=== PATIENT | male | born 1975 | race Two or more races ===

== ENCOUNTER 2020-02-17 16:31 | Emergency (ER) | payer OTHER ==
--- NOTE | 2020-02-17 17:18 | EDM.PDOC ---
ED HPI GENERAL MEDICAL PROBLEM - General Chief Complaint: Respiratory Problem Stated Complaint: COVID SYMPTOMS/COUGH/CHILLS Time Seen by Provider: 02/17/20 16:46 Source of Information: Reports: Patient, RN Notes Reviewed History Limitations: Reports: No Limitations - History of Present Illness INITIAL COMMENTS - FREE TEXT/NARRATIVE: Patient is a 44-year-old male who presents to the ED for the evaluation of his [id number] symptoms. Patient notes that since Tuesday, he has had generalized body aches, weakness fatigue, dry cough and shortness of breath. He has not had a fever, and is not experiencing any nausea, vomiting or diarrhea or he has not lost his sense of taste or smell. The patient notes that he was at a green party 2 weeks ago with friends, and he states he was exposed to Covid at that time. Again he is only been experiencing these new symptoms since this week Tuesday. Patient has been using a humidifier at home, and used his 's albuterol inhaler, he states this helped a little bit with his shortness of breath but states he felt anxious after this. He has been utilizing Tylenol/ibuprofen/aspirin for body aches, this seems to help quite a bit. His primary care provider is Tomi Alejo. The patient is obese, on antihypertensive drugs, and is a diabetic. - Related Data Allergies Allergy/AdvReac Type Severity Reaction Status Date / Time No Known Allergies Allergy Verified 02/17/20 16:54 Home Meds: Home Meds Dapagliflozin/Metformin HCl [Xigduo Xr 5 mg-1,000 mg Tablet] 1 tab PO BID 02/17/20 [History] Rosuvastatin [Crestor] 10 mg PO DAILY 02/17/20 [History] Valsartan 80 mg PO DAILY 02/17/20 [History] Past Medical History Cardiovascular History: Reports: High Cholesterol, Hypertension Endocrine/Metabolic History: Reports: Diabetes, Type II, Obesity/BMI 30+ ED ROS GENERAL - Review of Systems Review Of Systems: Comprehensive ROS is negative, except as noted in HPI. ED EXAM, GENERAL - Physical Exam Exam: See Below Exam Limited By: No Limitations General Appearance: Alert, WD/WN, No Apparent Distress Respiratory/Chest: No Respiratory Distress, Lungs Clear, Normal Breath Sounds, No Accessory Muscle Use, Chest Non-Tender Cardiovascular: Normal Peripheral Pulses, Regular Rate, Rhythm, No Edema, No Murmur Peripheral Pulses: 2+: Radial (L), Radial (R) Extremities: Normal Inspection, Normal Capillary Refill Neurological: Alert, Oriented, Normal Cognition, No Motor/Sensory Deficits Psychiatric: Normal Affect, Normal Mood Skin Exam: Warm, Dry, Intact, Normal Color, No Rash Course - Vital Signs Last Recorded V/S: Last Vital Signs Temp 97.3 F 02/17/20 16:48 Pulse 102 H 02/17/20 16:48 Resp 20 02/17/20 16:48 BP 146/93 H 02/17/20 16:48 Pulse Ox 94 L 02/17/20 16:48 - Orders/Labs/Meds Orders: Active Orders 24 hr Category Date Time Status Chest 1V Frontal [CR] Stat Exams 02/17/20 17:16 Ordered CORONAVIRUS COVID-19 PCR [facility] Stat Lab 02/17/20 17:15 Ordered Isolation [COMM] Routine Oth 02/17/20 17:15 Ordered - Re-Assessments/Exams Free Text/Narrative Re-Assessment/Exam: 02/17/20 17:18 Patient presents to the ED for evaluation of his [id number] symptoms. O2 sats at time of triage have been 94 to 95% on room air, he is not visibly dyspneic, his pulse is mildly elevated at 102, but he states he did use his 's albuterol inhaler prior to coming to the ER. He is afebrile temperature is 97.3 F, respiratory rate of 20 breaths/min and blood pressure is normal 146/93. At this time he does look stable enough that we will do the doctors hospital Covid swab and obtain a flu swab for rule out of influenza and get a chest x-ray for baseline purposes. The patient would qualify for bamlanivimab treatment; and this should be offered to the patient when we get his state COVID test back. 02/17/20 17:50 The patient's chest x-ray is done, and does demonstrate multilobar pneumonia concerning for possible viral etiology. There are patchy peripheral groundglass opacities noted. This is consistent with a clinical diagnosis of COVID-19. As stated above we will await his outpatient test to return, and then he would likely benefit from the bamlanivimab treatment. 02/17/20 18:21 Since influenza screen was negative. Patient's O2 sats are still good on room air, roughly 94 to 95%. I did go over this with him and told him he likely had COVID-19 even without the swab at today's visit. He verbalized understanding. Departure - Departure Time of Disposition: 18:23 Disposition: Home, Self-Care 01 Condition: Good Clinical Impression: Suspected COVID-19 virus infection - Discharge Information *PRESCRIPTION DRUG MONITORING PROGRAM REVIEWED*: No *COPY OF PRESCRIPTION DRUG MONITORING REPORT IN PATIENT HUGO: No Instructions: Shortness of Breath, Adult, [id number] Referrals: Jalil Lund MD [Primary Care Provider] - Forms: ED Department Discharge, ED Return to Work/School Form Additional Instructions: You were seen in the ER today for ongoing and/or worsening respiratory symptoms. Your chest x-ray showed signs of a viral pneumonia. Your oxygen levels were good at 94-95% on room air. The chest x-ray findings are very typical for a COVID-19 infection. It is very highly likely that you do in fact have COVID-19 and unfortunately this disease will make you feel very short of breath; as this is the nature of the disease. Your influenza swab was negative at today's visit. At this time we did test you for COVID-19. We ask that you self-quarantine and limit your exposure to others until you receive your results from the state. You have been given a work note to reflect this. Swabs are sent from this facility on a daily basis, at 2:30 PM, you should expect up to 3-5 business days for positive or negative results. However you may receive results earlier than this. We are doing our best to call as soon as we get results from the [place] dept. of [facility]. If you do get a call with positive results, please ask them about the outpatient antibody treatment, that may be of benefit to you. Please try to increase your oral fluid intake, and eat multiple small meals throughout the day, to keep yourself healthy. You need to keep yourself nourished in order to fight off this disease. You can try a liquid diet like gatorade/powerade as well to get your electrolytes. You may take 500 mg Tylenol every hours 6 hours for pain/fever relief. Do not exceed 4000 mg Tylenol in a 24-hour time span. You may continue to use your OTC medications at home as you previously were. Recommend you obtain a pulse oximeter and monitor your oxygen levels at home, you should place the monitor on your finger, and sit in a calm, quiet position for a few minutes and then record the number that is on the screen. If this consistently below 90% on room air without movement, this would be cause for concern to come back to the hospital for further management. You can obtain one of these at [facility], usually any pharmacy, or [facility] across the street from the [facility]. You were given a prescription for dexamethasone, dosing will be 1 tablet daily for the next 4 or 5 days. Your first dose was given in the ER today. This will cause some elevation in your blood sugars; so please be aware of this. Sepsis Event Note (ED) - Evaluation Sepsis Screening Result: No Definite Risk - Focused Exam Vital Signs: Vital Signs Temp Pulse Resp BP Pulse Ox 02/17/20 16:48 97.3 F 102 H 20 146/93 H 94 L - My Orders Last 24 Hours: My Active Orders 02/17/20 17:15 CORONAVIRUS COVID-19 PCR [facility] Stat Isolation [COMM] Routine 02/17/20 17:16 Chest 1V Frontal [CR] Stat - Assessment/Plan Last 24 Hours: My Active Orders 02/17/20 17:15 CORONAVIRUS COVID-19 PCR PHL Stat Isolation [COMM] Routine 02/17/20 17:16 Chest 1V Frontal [CR] Stat
[2020-02-17] MEDS ORDERED: Dexamethasone 4 MG Tab PO ONE (18:26)
--- NOTE | 2020-02-18 13:23 | CR ---
PROCEDURE INFORMATION: Exam: XR Chest, 1 View Exam date and time: 02/17/2020 5:19 PM Age: 44 years old Clinical indication: Cough and shortness of breath and other: Suspect covid -19 TECHNIQUE: Imaging protocol: XR of the chest Views: 1 view. COMPARISON: No relevant prior studies available. FINDINGS: Lungs: Patchy airspace density is present within the right lower lobe. There is also patchy peripheral ground-glass opacity in the left lower lobe. Findings compatible with multilobar pneumonia. Consider viral etiologies. Pleural space: Unremarkable. No pleural effusion. No pneumothorax. Heart/Mediastinum: Unremarkable. No cardiomegaly. Bones/joints: Unremarkable. IMPRESSION: Multilobar pneumonia concerning for possible viral etiology. Thank you for allowing us to participate in the care of your patient. Dictated and Authenticated by: Soham Herbert MD 02/17/2020 6:47 PM Central Time ([place] & [place]) [place]
== END 2020-02-17 19:09 | disposition home or self-care (01) ==
LOC: JD.ED 16:31
DX: U07.1 COVID-19 (principal); E78.00 Pure hypercholesterolemia, unspecified; I10 Essential (primary) hypertension; E11.9 Type 2 diabetes mellitus without complications; E66.9 Obesity, unspecified; Z79.84 Long term (current) use of oral hypoglycemic drugs; Z79.899 Other long term (current) drug therapy; Z68.38 Body mass index [BMI] 38.0-38.9, adult
CPT/HCPCS: 71045; 87635; 87804; 99285; J8540; 99282; U0002